=== PATIENT | male | born 1975 | race Caucasian/White ===

== ENCOUNTER 2022-01-12 03:19 | Emergency (ER) | payer OTHER ==
[2022-01-12] MEDS ORDERED: Ketorolac 30 MG/ML SDV IVPUSH ONE (03:56)
[2022-01-12] MEDS ORDERED: Lactated Ringers 1,000 ML IV STA ×3 (03:56→05:49)
[2022-01-12 04:03] LABS: CARBON DIOXIDE,CO2 22.7 mmol/L (21.0-32.0); POTASSIUM,K 4.3 mmol/L (3.5-5.1)
[2022-01-12] MEDS ORDERED: 50% Dextrose in Water 50 ML Syringe IVPUSH PRN (04:13)
[2022-01-12] MEDS ORDERED: Insulin Regular, Human 100 Units/ML 10 ML Vial SUBCUT STA (04:13)
[2022-01-12] MEDS ORDERED: Glucagon,Human Recombinant 1 MG Vial IM PRN (04:13)
[2022-01-12 05:06] LABS: HEMOGLOBIN A1C 10.6 %
[2022-01-12] MEDS ORDERED: metFORMIN 500 MG Tab PO ONE (05:11)
[2022-01-12] MEDS ORDERED: cefTRIAXone 1 GM in Sodium Chloride 0.9% 50 ML IV STA (05:45)
[2022-01-12] MEDS ORDERED: Morphine 4 MG/ML VIAL IVPUSH ONE (06:39)
[2022-01-12] MEDS ORDERED: Morphine 4 MG/ML VIAL IVPUSH STA (09:26)
[2022-01-12] MEDS ORDERED: Ondansetron 4 MG/2 ML SDV IVPUSH ONE (09:27)
== END 2022-01-12 09:33 ==
LOC: MW.ED 03:19
DX: A41.9 Sepsis, unspecified organism (principal); N13.2 Hydronephrosis with renal and ureteral calculous obstruction; N39.0 Urinary tract infection, site not specified; N17.9 Acute kidney failure, unspecified; E11.9 Type 2 diabetes mellitus without complications; Z79.84 Long term (current) use of oral hypoglycemic drugs; Z20.822 Contact with and (suspected) exposure to COVID-19
CPT/HCPCS: 36415; 74176; 80048; 81001; 83036; 83605; 85025; 85610; 87040; 87635; 96361; 96365; 96375; 96376; 99285; A9270; J0696; J1885; J2270; J2405; J7120; J1815-GY; U0002

== ENCOUNTER 2022-03-15 08:43 | Emergency (ER) | payer OTHER ==
[2022-03-15] MEDS ORDERED: Sodium Chloride 0.9% 1,000 ML IV ONE ×2 (11:25→12:02)
[2022-03-15] MEDS ORDERED: Sodium Chloride 0.9% 2.5 ML Syringe FLUSH PRN (11:25)
[2022-03-15] MEDS ORDERED: Sodium Chloride 0.9% 10 ML Syringe FLUSH PRN (11:25)
[2022-03-15] MEDS ORDERED: Ketorolac 30 MG/ML SDV IVPUSH ONE (11:31)
[2022-03-15] MEDS ORDERED: HYDROmorphone 1 MG/ML Syringe IVPUSH ONE (11:31)
[2022-03-15] MEDS ORDERED: Piperacillin/Tazobactam 3.375 GM in Sodium Chloride 0.9% 50 ML IV ONE (12:04)
[2022-03-15 12:08] LABS: CARBON DIOXIDE,CO2 21.8 mmol/L (21.0-32.0); POTASSIUM,K 3.6 mmol/L (3.5-5.1)
[2022-03-15] MEDS ORDERED: VANCOmycin 2 GM/400 ML 2 GM in Premix Bag 1 BAG IV ONE (12:15)
[2022-03-15] MEDS ORDERED: HYDROmorphone 2 MG/ML Syringe IVPUSH ONE (15:53)
[2022-03-15 21:43] LABS: C. TRACHOMATIS BY PCR NOT DETECTED; N. GONORRHOEAE BY PCR NOT DETECTED
== END 2022-03-15 18:28 ==
LOC: MW.ED 08:43
DX: A41.9 Sepsis, unspecified organism (principal); N39.0 Urinary tract infection, site not specified; N17.9 Acute kidney failure, unspecified; N13.5 Crossing vessel and stricture of ureter without hydronephrosis; Z20.822 Contact with and (suspected) exposure to COVID-19
CPT/HCPCS: 36415; 74176; 76775; 80053; 81001; 83605; 83690; 85025; 87040; 87086; 87491; 87591; 87635; 96365; 96366; 96367; 96375; 96376; 99285; J1170; J1885; J2543; J3370; J3490; J7030; 87077; 87107; U0002